=== PATIENT | male | born 1960 | race Caucasian/White ===

== ENCOUNTER 2019-04-16 21:43 | Emergency (ER) | payer BC ==
[~2019-04-16] VITALS: Ht 188 cm; Wt 90.7 kg
== END 2019-04-16 23:26 | disposition other institution (70) ==
LOC: ER 21:43
DX: S20.361A Insect bite (nonvenomous) of right front wall of thorax, initial encounter (principal); L57.0 Actinic keratosis; W57.XXXA Bitten or stung by nonvenomous insect and other nonvenomous arthropods, initial encounter
CPT/HCPCS: 10120; 73030; 99282-25

== ENCOUNTER → 2020-09-03 | Outpatient (CLI) | payer BC | END | disposition home or self-care (01) | LOC: PLD 11:30 → LAB SHORT 11:30 | DX: L30.8 Other specified dermatitis (principal) | CPT/HCPCS: 88305; 88312 ==